=== PATIENT | male | born 1985 | race Caucasian/White ===

== ENCOUNTER 2022-07-22 10:11 | Emergency (ER) | payer OTHER ==
[2022-07-22] MEDS ORDERED: Aspirin 81 MG Tab.Chew PO ONE (10:40)
[2022-07-22 10:55] LABS: BASOPHILS ABSOLUTE AUTO 0.01 K/mm3 (0.01-0.08); BASOPHILS PERCENT AUTO 0.2 % (0.1-1.2); EOSINOPHILS ABSOLUTE AUTO 0.11 K/mm3 (0.04-0.54); EOSINOPHILS PERCENT AUTO 2.1 (0.8-7.0); HEMATOCRIT 43.7 % (40.1-51.0); HEMOGLOBIN 15.1 gm/dl (13.7-17.5); IMMATURE GRAN ABSOLUTE AUTO 0.01 K/mm3 (0.00-0.10); IMMATURE GRAN PERCENT AUTO 0.2 % (<=1.0); LYMPHOCYTES ABSOLUTE AUTO 2.11 K/mm3 (1.32-3.57); LYMPHOCYTES PERCENT AUTO 40.3 % (21.8-53.1); MEAN CORPUSCULAR HEMOGLOBIN 31.5 pg (25.7-32.2); MEAN CORPUSCULAR HGB CONC 34.6 g/dl (32.2-35.5); MEAN PLATELET VOLUME 9.3 fl (9.4-12.3); MONOCYTES ABSOLUTE AUTO 0.43 K/mm3 (0.30-0.82); MONOCYTES PERCENT AUTO 8.2 % (5.3-12.2); NEUTROPHILS ABSOLUTE AUTO 2.56 K/mm3 (1.78-5.38); PLATELET COUNT,PLT 259 K/mm3 (163-337); WHITE BLOOD CELL COUNT,WBC 5.23 K/mm3 (4.23-9.07)
[2022-07-22 11:12] LABS: INR 0.98; PROTHROMBIN TIME 10.5 SECONDS (9.7-12.0)
[2022-07-22 11:20] LABS: D-DIMER QUANTITATIVE < 0.19 mg/L (0.19-0.50)
[2022-07-22 11:31] LABS: A/G RATIO 1.3 (1-2); ALANINE AMINOTRANSFERASE,ALT 39 U/L (16-63); ALBUMIN 4.5 g/dl (3.4-5.0); ALKALINE PHOSPHATASE 56 U/L (46-116); ANION GAP 11.9 (5-15); ASPARTATE AMNIOTRANSFERASE,AST 18 U/L (15-37); BILIRUBIN TOTAL 0.9 mg/dL (0.2-1.0); BLOOD UREA NITROGEN,BUN 15 mg/dL (7-18); CALCIUM 9.4 mg/dL (8.5-10.1); CARBON DIOXIDE,CO2 27 mEq/L (21-32); CHLORIDE,CL 103 mEq/L (98-107); EST CRCL DRUG DOSING (CG) 106.68 mL/min; ESTIMATED GFR 99 mL/min (>60); GLUCOSE RANDOM 97 mg/dL (70-99); POTASSIUM,K 3.9 mEq/L (3.5-5.1); SODIUM,NA 138 mEq/L (136-145)
[2022-07-22 11:37] LABS: TROPONIN I HIGH SENSITIVITY < 4 pg/mL (<=76)
== END 2022-07-22 12:32 | disposition home or self-care (01) ==
LOC: JD.ED 10:11
DX: R00.2 Palpitations (principal); R07.9 Chest pain, unspecified
CPT/HCPCS: 36415; 71045; 80053; 84484; 85025; 85379; 85610; 93005; 99285; A9270; 93010; 99284